=== PATIENT | female | born 1965 | race Caucasian/White ===

== ENCOUNTER 2016-09-27 16:54 | Emergency (ER) | payer SELFPAY ==
[2016-09-27 16:54] VITALS: BMI 28.7
[2016-09-27 17:14] VITALS: RESP 18
[2016-09-27 17:44] LABS: RBC URINE 1 /hpf (0-3); URINE BILIRUBIN NEGATIVE (NEGATIVE); URINE BLOOD 1+ (NEGATIVE); URINE COLOR Straw (YELLOW); URINE GLUCOSE (UA) NORMAL (Normal); URINE KETONE NEGATIVE (NEGATIVE); URINE LEUKOCYTE ESTERASE NEG Leu/uL (Negative); URINE PROTEIN NEGATIVE (NEGATIVE); URINE UROBILINOGEN NORMAL mg/dL (0.2-1.0); WBC URINE < 1 /hpf (0-5)
[2016-09-27] MEDS ORDERED: Sodium Chloride 0.9% 1,000 ML IV ONE (19:23)
--- NOTE | 2016-09-27 19:23 | C.PDOC ---
History Of Present Illness The patient presents to the ED for evaluation of mid-epigastric abdominal pain which began around 4 days ago. Patient reports slight nausea but states she is able to tolerate PO intake. Patient denies vomiting, changes in bowel habits, and back pain. Time Seen by Provider: 09/27/16 19:23 Chief Complaint (Nursing): Abdominal Pain History Per: Patient History/Exam Limitations: no limitations Onset/Duration Of Symptoms: Days (4) Current Symptoms Are (Timing): Still Present Severity: Mild Pain Scale Rating Of: 3 Location Of Pain/Discomfort: Epigastric Radiation Of Pain To:: None Quality Of Discomfort: "Pain" Associated Symptoms: Nausea. denies: Vomiting, Loss Of Appetite Exacerbating Factors: None Alleviating Factors: None Last Bowel Movement: Today Recent travel outside of the [place]: No Additional History Per: Patient Abnormal Vaginal Bleeding: No Past Medical History Reviewed: Historical Data, Nursing Documentation, Vital Signs Vital Signs: Last Vital Signs Temp 97.4 F L 09/27/16 17:12 Pulse 71 09/27/16 17:12 Resp 18 09/27/16 17:12 BP 136/82 09/27/16 17:12 Pulse Ox 100 09/27/16 19:41 - Medical History PMH: Gastritis, Hypercholesterolemia Surgical History: Cholecystectomy Family History: States: Unknown Family Hx - Social History Hx Tobacco Use: No Hx Alcohol Use: Yes Hx Substance Use: No - Immunization History Hx Tetanus Toxoid Vaccination: No Hx Influenza Vaccination: No Hx Pneumococcal Vaccination: No Review Of Systems Constitutional: Negative for: Fever, Chills, Other (decrease PO intake ) Cardiovascular: Negative for: Chest Pain Respiratory: Negative for: Cough, Shortness of Breath Gastrointestinal: Positive for: Nausea, Abdominal Pain (epigastric ). Negative for: Vomiting, Diarrhea, Constipation Genitourinary: Negative for: Dysuria, Frequency, Hematuria Musculoskeletal: Negative for: Back Pain Skin: Negative for: Rash, Lesions, Jaundice, Bruising Neurological: Negative for: Weakness, Numbness Physical Exam - Physical Exam Appears: Non-toxic, No Acute Distress Skin: Warm, Dry Eye(s): bilateral: Normal Inspection Oral Mucosa: Moist Chest: Symmetrical, No Deformity, No Tenderness Cardiovascular: Rhythm Regular, No Murmur Respiratory: No Rales, No Rhonchi, No Wheezing Gastrointestinal/Abdominal: Tenderness (to mid-epigastric region on palpation ) , No Guarding, No Rebound Back: No CVA Tenderness, No Vertebral Tenderness, No Paraspinal Tenderness Extremity: Normal ROM, Capillary Refill (less than 2 seconds ) Neurological/Psych: Oriented x3 Gait: Steady ED Course And Treatment - Laboratory Results Result Diagrams: 09/27/16 20:00 09/27/16 20:00 O2 Sat by Pulse Oximetry: 100 (on RA) Pulse Ox Interpretation: Normal Progress Note: labs ordered and reviewed. Patient received Pepcid IV and IV fluids. Reevaluation Time: 22:11 Reassessment Condition: Improved Disposition Counseled Patient/Family Regarding: Studies Performed, Diagnosis, Need For Followup, Rx Given - Disposition Referrals: [facility] [Outside] [facility] [Outside] Disposition: HOME/ ROUTINE Disposition Time: 19:23 Condition: FAIR Additional Instructions: will need a repeat CT chest in about 12 months Prescriptions: Dicyclomine [Dicyclomine HCl] 10 mg PO QID #20 cap Instructions: Abdominal Pain (ED), Gas and Bloating (ED), Pulmonary Nodules (ED ) Print Language: MAORI - Clinical Impression Clinical Impression: Abdominal pain, Pulmonary nodule - Scribe Statement The provider has reviewed the documentation as recorded by the Scribe (Joie Enrique) Provider Attestation: All medical record entries made by the Scribe were at my direction and personally dictated by me. I have reviewed the chart and agree that the record accurately reflects my personal performance of the history, physical exam, medical decision making, and the department course for this patient. I have also personally directed, reviewed, and agree with the discharge instructions and disposition.
[2016-09-27] MEDS ORDERED: Sodium Chloride 0.9% 1,000 ML ONE (19:57)
[2016-09-27 20:09] LABS: BASO # 0.1 K/uL (0.0-0.2); BASO % 0.9 % (0.0-2.0); EOS # 0.3 K/uL (0.0-0.7); EOS % 2.4 % (0.0-4.0); HEMATOCRIT 38.8 % (34.0-47.0); LYMPH # 4.1 K/uL (1.0-4.3); LYMPH % 38.1 % (20.0-40.0); MEAN CELL VOLUME 89.5 fL (81.0-99.0); MEAN CORPUSCULAR HEMOGLOBIN 29.3 pg (27.0-31.0); MEAN CORPUSCULAR HGB CONC 32.8 g/dL (33.0-37.0); MEAN PLATELET VOLUME 8.3 fL (7.2-11.7); MONO # 0.7 K/uL (0.0-0.8); MONO % 6.3 % (0.0-10.0); RED CELL DISTRIBUTION WIDTH 13.9 % (11.5-14.5); WHITE BLOOD COUNT 10.7 K/uL (4.8-10.8)
[2016-09-27 20:18] LABS: CHLORIDE 101 mmol/L (98-107); SODIUM 140 mmol/L (132-148)
[2016-09-27 20:19] LABS: POTASSIUM 3.5 mmol/L (3.6-5.2)
[2016-09-27 20:21] LABS: ALB/GLOB RATIO 1.3 (1.0-2.1); ALKALINE PHOSPHATASE 110 U/L (38-126); AST/SGOT 30 U/L (14-36); BILIRUBIN,TOTAL 0.5 mg/dL (0.2-1.3); BLOOD UREA NITROGEN 10 mg/dL (7-17); CARBON DIOXIDE 28 mmol/L (22-30); GFR AFRICAN-AMERICAN > 60; GLUCOSE,RANDOM 90 mg/dL (65-105); TOTAL PROTEIN 7.6 g/dL (6.3-8.3)
[2016-09-27 20:22] LABS: ALT/SGPT 20 U/L (9-52); CALCIUM 9.1 mg/dl (8.6-10.4)
[2016-09-27] MEDS ORDERED: Iodixanol 320 MG/ML 100 ML BOTTLE IV ONE (21:01)
[2016-09-27 22:30] VITALS: BP 132/82; PULSE 77; TEMP 97.8; O2SAT 99
--- NOTE | 2016-09-28 08:44 | CT ---
PROCEDURE: CT Abdomen and Pelvis with intravenous contrast HISTORY: midepigastric pain COMPARISON: Transvaginal ultrasound dated 09/22/2015 TECHNIQUE: Multiple axial computed tomographic images of the abdomen and pelvis were performed with intravenous contrast. 100 cc of Visipaque 320 intravenous contrast was administered. Subsequently, sagittal and coronal reformatted images were created and reviewed. Radiation dose: Total exam DLP = 564 mGy-cm. This CT exam was performed using one or more of the following dose reduction techniques: Automated exposure control, adjustment of the mA and/or kV according to patient size, and/or use of iterative reconstruction technique. FINDINGS: LOWER THORAX: 5 millimeter subpleural nodule partially imaged in the right middle lobe. Atelectasis in the posterior lungs. LIVER: Unremarkable. No gross lesion or ductal dilatation. GALLBLADDER AND BILE DUCTS: Cholecystectomy. PANCREAS: Unremarkable. No gross lesion or ductal dilatation. SPLEEN: Small 8 millimeter hypodensity at the dome of the spleen, too small to adequately characterize. ADRENALS: Unremarkable. No mass. KIDNEYS AND URETERS: Nonobstructing small calculus in the lower pole of the left kidney. VASCULATURE: Unremarkable. No aortic aneurysm. BOWEL: Mild thickening versus underdistention of the distal stomach. Clinical correlation. APPENDIX: Unremarkable. Normal appendix. PERITONEUM: Unremarkable. No free fluid. No free air. LYMPH NODES: Unremarkable. No enlarged lymph nodes. BLADDER: Unremarkable. REPRODUCTIVE: Unremarkable. BONES: No acute fracture. OTHER FINDINGS: None. IMPRESSION: Nonobstructing small calculus in the lower pole of the left kidney. 5 millimeter small subpleural nodule partially image in the right middle lobe of the lung. 3-6 month interval imaging follow-up may be helpful if clinically indicated. Mild thickening versus underdistention of the distal stomach. Clinical correlation. These findings were preliminarily reported at 9:56 p.m. on 09/27/[address] Pranay Alves from [facility].
== END 2016-09-27 22:30 | disposition home or self-care (01) ==
LOC: C.ER 16:54
DX: R91.1 Solitary pulmonary nodule (principal); R10.13 Epigastric pain
CPT/HCPCS: 74177; 80053; 81001; 83690; 84703; 85025; 96361; 96374; 96375; 99285; J1885; J7040; Q9967